=== PATIENT | female | born 1975 | race Caucasian/White ===

== ENCOUNTER 2020-12-29 00:05 | Inpatient (IN) | payer BC ==
[2020-12-29 00:43] VITALS: BMI 39.4
[2020-12-29] MEDS ORDERED: Senokot S 8.6-50 MG TAB PO PRN (00:54)
[2020-12-29] MEDS ORDERED: Acetaminophen 325 MG TAB PO PRN (00:54)
[2020-12-29] MEDS ORDERED: Morphine 4 MG/ML VIAL SLOW IVP PRN (00:54)
[2020-12-29] MEDS: 1/2 NS w/KCL 20 mEq 1,000 ML IV SCH ×3 (01:34→20:45)
[2020-12-29] MEDS: Piperacillin/Tazobactam 3.375 GM in Sodium Chloride 0.9% 100 ML IVPB SCH ×3 (04:14→20:45)
[2020-12-29] MEDS: HYDROcodone/Acetaminophen 7.5/325 mg Tablet PO PRN ×3 (04:14→21:49)
[2020-12-29 06:32] LABS: Anion Gap 13 mmol/L (10-20); BUN (Urea Nitrogen) 7 mg/dL (7.0-18.7); Calc. Creatinine Clearance 185 mL/min (70-130); Carbon Dioxide 21 mmol/L (22-29); Chloride 109 mmol/L (98-107); Glucose 105 mg/dL (70-105); Magnesium 1.8 mg/dL (1.6-2.6); Potassium 3.7 mmol/L (3.5-5.1); Sodium 139 mmol/L (136-145)
[2020-12-29 06:41] LABS: #Eosinphils 0.1 10x3/uL (0.0-0.5); #Monocytes 0.9 10x3/uL (0.0-1.1); #Neutrophils 5.9 10x3/uL (1.5-8.4); %Basophils 0.4 % (0.0-2.0); %Eosinophils 1.4 % (0.0-6.0); %Lymphocytes 17.3 % (18.0-47.0); %Monocytes 10.7 % (0.0-10.0); Hemoglobin 8.4 g/dL (12.0-15.5); Mean Corpuscular HGB CONC 31.2 g/dL (32.0-36.0); Mean Corpuscular Hemoglobin 30.1 pg (27.0-33.0); Mean Corpuscular Volume 96.4 fl (81.6-98.3); Mean Platelet Volume 10.7 fl (7.4-10.4); Platelet Count 213 10x3/uL (150-450); RBC Distribution Width 13.9 % (11.5-14.5); Red Blood Cell (RBC) Count 2.79 10x6/uL (3.90-5.03); White Blood Cell (WBC) Count 8.4 10x3/uL (3.5-10.5)
[2020-12-29] MEDS: Enoxaparin Sodium 40 MG/0.4 ML SYRINGE SC SCH (08:19)
[2020-12-29] MEDS: Ibuprofen 600 MG TAB PO SCH ×3 (10:32→21:47)
[2020-12-30] MEDS ORDERED: Potassium Chloride 20 MEQ in Sodium Chloride 0.45% 1,000 ML IV SCH (04:30)
[2020-12-30] MEDS: Ibuprofen 600 MG TAB PO SCH ×2 (04:31→10:54)
[2020-12-30] MEDS: Piperacillin/Tazobactam 3.375 GM in Sodium Chloride 0.9% 100 ML IVPB SCH ×2 (04:31→12:40)
[2020-12-30] MEDS: 1/2 NS w/KCL 20 mEq 1,000 ML IV SCH (06:05)
[2020-12-30] MEDS: Enoxaparin Sodium 40 MG/0.4 ML SYRINGE SC SCH (08:19)
[2020-12-30] MEDS ORDERED: FLU VACC QS2021-22(6MOS UP)/PF 60 MCG/0.5 ML SYRINGE IM ONE (09:00)
[2020-12-30 11:29] VITALS: BP 121/59; TEMP 98.4
== END 2020-12-30 16:10 | disposition home or self-care (01) | DRG 759 ==
LOC: CSHPP 00:05
PROVIDERS: ADMIT Family Medicine; ATTEND Internal Medicine
DX: N73.9 Female pelvic inflammatory disease, unspecified (principal); E66.9 Obesity, unspecified; F17.210 Nicotine dependence, cigarettes, uncomplicated; Z79.899 Other long term (current) drug therapy; Z68.39 Body mass index [BMI] 39.0-39.9, adult
CPT/HCPCS: 36415; 80048; 83735; 85025; 87491; 87591; J1650; J2543; J3480; J3490